=== PATIENT | male | born 1990 | race Caucasian/White ===

== ENCOUNTER 2020-10-30 23:10 | Emergency (ER) | payer SELFPAY ==
[2020-10-30 23:22] VITALS: TEMP 98.5; BMI 23.7
[2020-10-31 00:46] VITALS: BP 132/88
[2020-10-31 02:40] VITALS: PULSE 103
== END 2020-10-31 03:00 | disposition home or self-care (01) ==
LOC: JER 23:10
DX: F19.90 Other psychoactive substance use, unspecified, uncomplicated (principal)
CPT/HCPCS: 93005; 93010; 99283-25